=== PATIENT | male | born 2000 | race Caucasian/White ===

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

== ENCOUNTER 2024-03-05 00:42 | Outpatient (CLI) | payer BC | END 2024-03-05 00:43 | disposition left against medical advice (07) | LOC: EMS 00:42 | DX: R07.9 Chest pain, unspecified (principal); F41.9 Anxiety disorder, unspecified; R42 Dizziness and giddiness ==